=== PATIENT | male | born 1985 ===

== ENCOUNTER 2017-03-17 10:26 | Emergency (ER) | payer OTHER ==
[2017-03-17 10:41] VITALS: BP 141/74; PULSE 71; RESP 20; TEMP 97.3; O2SAT 99
--- NOTE | 2017-03-17 12:11 | ED PDOC ---
HPI: Psych/Substance Abuse Time Seen by Provider: 03/17/17 11:35 Chief Complaint (Nursing): Psychiatric Evaluation History Per: Patient Additional Complaint(s): Pt. was informed by his unarmed security officer 2 weeks ago that he needs to be enrolled in a mental health program. Reports a hx of depression, anxiety, and "anger issues." Offers no complaints at this time. Denies SI/HI, hallucinations. Past Medical History Reviewed: Historical Data, Nursing Documentation, Vital Signs Vital Signs: Last Vital Signs Temp 97.3 F L 03/17/17 10:39 Pulse 71 03/17/17 10:39 Resp 20 03/17/17 10:39 BP 141/74 03/17/17 10:39 Pulse Ox 99 03/17/17 10:39 - Medical History PMH: Anxiety, Depression - Family History Family History: States: No Known Family Hx - Immunization History Hx Tetanus Toxoid Vaccination: No Hx Influenza Vaccination: No Hx Pneumococcal Vaccination: No - Home Medications Home Medications: Ambulatory Orders Medication Instructions Recorded Divalproex [Depakote] 250 mg PO BID 01/28/17 Ondansetron [Zofran Odt] 4 mg PO Q8 PRN #15 odt 02/13/17 - Allergies Allergies/Adverse Reactions: Allergies Allergy/AdvReac Type Severity Reaction Status Date / Time No Known Allergies Allergy Verified 02/13/17 19:58 Review of Systems ROS Statement: Except As Marked, All Systems Reviewed And Found Negative Physical Exam - Physical Exam Appears: Positive for: Well, Non-toxic, No Acute Distress Skin: Positive for: Normal Color, Warm. Negative for: Rash Eye Exam: Positive for: Normal appearance ENT: Positive for: Normal ENT Inspection Cardiovascular/Chest: Positive for: Regular Rate, Rhythm Respiratory: Positive for: CNT, Normal Breath Sounds Gastrointestinal/Abdominal: Positive for: Normal Exam, Soft. Negative for: Tenderness Back: Positive for: Normal Inspection Extremity: Positive for: Normal ROM Neurologic/Psych: Positive for: Alert, Oriented, Mood/Affect (calm, cooperative) - ECG O2 Sat by Pulse Oximetry: 99 - Progress ED Course And Treament: Pt. evaluated by xander (Jenny) who spoke with Dr. Rae and cleared pt. for discharge. Disposition - Clinical Impression Clinical Impression: Anxiety - Disposition Disposition Time: 12:23 Condition: STABLE Instructions: Anxiety (ED) Forms: [employer] ([place])
== END 2017-03-17 12:38 | disposition home or self-care (01) ==
LOC: H.ER 10:26
DX: F41.9 Anxiety disorder, unspecified (principal); F32.9 Major depressive disorder, single episode, unspecified